=== PATIENT | male | born 1990 | race African-American/Black ===

== ENCOUNTER 2016-09-14 07:37 | Emergency (ER) | payer OTHER ==
[~2016-09-14] VITALS: Ht 185.4 cm; Wt 59.0 kg
[~2016-09-14 07:37] MED LIST: IBUPROFEN600 MG PO; NKM; NORCO 5-325 TA1 EACH PO
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
[2016-09-14] MEDS ORDERED: IBUPROFEN600 MG ORAL (08:02)
[2016-09-14 08:06] VITALS: BP 120/80
[2016-09-14 08:16] VITALS: BP 120/80
== END 2016-09-14 08:16 | disposition home or self-care (01) ==
LOC: EMR 08:08
DX: S62.91XD Unspecified fracture of right hand, subsequent encounter for fracture with routine healing (principal); X58.XXXD Exposure to other specified factors, subsequent encounter
CPT/HCPCS: 99283

== ENCOUNTER 2018-08-23 14:12 | Emergency (ER) | payer SELFPAY ==
[~2018-08-23] VITALS: Ht 190.5 cm; Wt 77.1 kg
[~2018-08-23 14:12] MED LIST changes: +IBUPROFEN600 MG ORAL
[2018-08-23 14:30] VITALS: BP 144/73
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
[2018-08-23 15:10] LABS: BASOPHILS % (AUTO) 1.3 % (0.0-2.0); EOSINOPHILS % (AUTO) 0.7 % (0.0-3.0); HEMATOCRIT 53.6 % (42.0-52.0); HEMOGLOBIN 17.5 G/DL (14.2-18.0); LYMPHOCYTES % (AUTO) 30.4 % (20.0-45.0); MEAN CORPUSCULAR VOLUME 91 FL (80-99); MONOCYTES % (AUTO) 6.5 % (1.0-10.0); NEUTROPHILS % (AUTO) 61.1 % (45.0-75.0); PLATELET COUNT 266 K/UL (150-450); RED BLOOD COUNT 5.88 M/UL (4.70-6.10); RED CELL DISTRIBUTION WIDTH 12.4 % (11.6-14.8)
[2018-08-23 15:20] LABS: ANION GAP 11 mmol/L (5-15); BLOOD UREA NITROGEN 3 mg/dL (7-18); CALCIUM 9.6 MG/DL (8.5-10.1); CARBON DIOXIDE 29 MMOL/L (21-32); CHLORIDE 101 MMOL/L (98-107); POTASSIUM 3.2 MMOL/L (3.5-5.1); SODIUM 140 MMOL/L (136-145)
[2018-08-23 15:39] LABS: ALANINE AMINOTRANSFERASE 17 U/L (12-78); ALBUMIN 4.4 G/DL (3.4-5.0); ALBUMIN/GLOBULIN RATIO 1.1 (1.0-2.7); ALKALINE PHOSPHATASE 77 U/L (46-116); ASPARTATE AMINO TRANSFERASE 21 U/L (15-37); BILIRUBIN,TOTAL 1.4 MG/DL (0.2-1.0)
[2018-08-23 15:43] LABS: BILIRUBIN,DIRECT 0.3 MG/DL (0.0-0.3)
[2018-08-23 16:37] VITALS: BP 118/75
--- NOTE | 2018-08-23 16:44 | NUR ---
ER DISCHARGE NOTE: Patient is cleared to be discharged per ERMD, pt is aox4, on room air, with stable vital signs. pt was given dc and prescription instructions, pt was able to verbalize understanding, pt id band and iv site removed without complications. pt is able to ambulate with steady gait. pt took all belongings.
--- NOTE | 2018-08-24 16:52 | Cardiology Report ---
APPROVED REPORT EKG Measurement Heart [id number] Sinus bradycardia Otherwise normal ECG
== END 2018-08-23 16:44 | disposition home or self-care (01) ==
LOC: EMR 15:42
DX: F14.90 Cocaine use, unspecified, uncomplicated (principal); G47.00 Insomnia, unspecified; F12.90 Cannabis use, unspecified, uncomplicated; Z72.89 Other problems related to lifestyle; F17.200 Nicotine dependence, unspecified, uncomplicated; R00.1 Bradycardia, unspecified
CPT/HCPCS: 36415; 80053; 80307; 82248; 82962; 84484; 85025; 86710; 93005; 96360; 96361; 99284; G0480; 80329